=== PATIENT | male | born 1945 | race Caucasian/White ===

== ENCOUNTER 2018-07-05 08:22 | Day surgery (SDC) | payer MEDICARE, OTHER ==
[~2018-07-05 08:22] MED LIST: CHONDR SU A NA/HYALUR INTRAOC KIT (SURGICARE) ONE; EPINEPHRINE INJ/PF 1 MG/1 ML AMPULE ONE; KETOROLAC TROMETHAMINE 0.45% 4 DROP/0.4 ML DROPERETTE OS PRN; LIDOCAINE 1% INJ-PF (10 MG/ML) 30 ML SDV ONE; MIDAZOLAM 2 MG/2 ML INJ ONE
[2018-07-05] MEDS: BESIFLOXACIN HCL 0.6% OPH SUSP 5 ML BOTTLE OS PRN ×3 (09:30→10:19)
[2018-07-05] MEDS: TROPICAMIDE 1% OPH SOLN 3 ML OS PRN ×3 (09:30→09:50)
[2018-07-05] MEDS: CYCLOPENTOLATE 0.2%/PHENYLEPHRINE 1% OPH SOLN 2 ML OS PRN ×3 (09:30→09:50)
[2018-07-05] MEDS: TETRACAINE HCL 0.5% OPH SOLN 4 ML OS PRN ×3 (09:30→10:03)
--- NOTE | 2018-07-06 23:42 | [facility] OPERATIVE REPORT E ---
[facility] Operative Report NAME: GILMA FRANCIS SR AGE: 73Y DATE OF SURGERY: 07/05/2018 ROOM: PREOPERATIVE DIAGNOSIS: CATARACT, RIGHT EYE. POSTOPERATIVE DIAGNOSIS: CATARACT, RIGHT EYE. OPERATION: Cataract extraction with insertion of an IOL of the right eye. SURGEON: LARISSA PALMA M.D. ANESTHESIA: Topical. PROCEDURE: After obtaining appropriate consent, the patient's right eye was prepped and draped in sterile fashion as well as the surgeon in a sterile manner and cataract surgery was started. First a paracentesis blade was used to make a side-port incision. Viscoelastic was used to inflate the anterior chamber. Next a 2.4 mm incision was made with a 2.4 mm blade, clear corneal temporally. A continuous capsulorrhexis was made using a cystotome and Utrata forceps. Following this hydrodissection was carried out to make the lens fully loose and mobile and it was rotated 90 degrees. Following this, a nkolfb-irw-tnvuwzp technique was used to phacoemulsify the lens with a CDE of 7.04. The remaining cortex was removed with irrigation/aspiration. Provisc was instilled into the capsular bag to inflate the bag. A SN60WF, 20.5 diopter lens was placed. The remaining viscoelastic material was removed with irrigation/aspiration. Following this, the incision was found to be watertight. Besivance was instilled into the eye and a protective shield was placed over the eye. The patient returned to the postoperative recovery in stable condition. DICTATING PHYSICIAN: LARISSA PALMA M.D. [id number] PHY#: [id number] ID: [id number] JOB#: [id number] ACCT: [id number] cc:LARISSA PALMA M.D. >
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
--- NOTE | 2018-07-13 13:12 | [facility] OPERATIVE REPORT E ---
[facility] Operative Report NAME: GILMA FRANCIS SR AGE: 73Y DATE OF SURGERY: 07/05/2018 ROOM: ADDENDUM: PREOPERATIVE DIAGNOSIS: CATARACT, LEFT EYE. POSTOPERATIVE DIAGNOSIS: CATARACT, LEFT EYE. OPERATION: Cataract extraction with insertion of an IOL of the left eye. PROCEDURE: It should be changed to left eye. DICTATING PHYSICIAN: LARISSA PALMA M.D. [id number] PHY#: [id number] ID: [id number] JOB#: [id number] ACCT: [id number] cc:LARISSA PALAM M.D. >
== END 2018-07-05 11:05 | disposition home or self-care (01) ==
LOC: SC 08:22
PROVIDERS: ATTEND Internal Medicine
DX: H25.13 Age-related nuclear cataract, bilateral (principal); H35.3131 Nonexudative age-related macular degeneration, bilateral, early dry stage; E11.9 Type 2 diabetes mellitus without complications; I10 Essential (primary) hypertension; E78.00 Pure hypercholesterolemia, unspecified; Z87.891 Personal history of nicotine dependence; Z79.1 Long term (current) use of non-steroidal anti-inflammatories (NSAID); Z79.84 Long term (current) use of oral hypoglycemic drugs; Z79.899 Other long term (current) drug therapy; Z79.82 Long term (current) use of aspirin
CPT/HCPCS: 66984; 82962; V2632; J2250; J3490 ×3; J0171; 142

== ENCOUNTER 2018-07-24 07:52 | Day surgery (SDC) | payer OTHER ==
[~2018-07-24 07:52] MED LIST changes: -CHONDR SU A NA/HYALUR INTRAOC KIT (SURGICARE) ONE; -EPINEPHRINE INJ/PF 1 MG/1 ML AMPULE ONE; +KETOROLAC TROMETHAMINE 0.45% 4 DROP/0.4 ML DROPERETTE OD PRN; -KETOROLAC TROMETHAMINE 0.45% 4 DROP/0.4 ML DROPERETTE OS PRN; -LIDOCAINE 1% INJ-PF (10 MG/ML) 30 ML SDV ONE
[2018-07-24] MEDS: TROPICAMIDE 1% OPH SOLN 3 ML OD PRN ×3 (08:35→08:55)
[2018-07-24] MEDS: BESIFLOXACIN HCL 0.6% OPH SUSP 5 ML BOTTLE OD PRN ×4 (08:35→09:36)
[2018-07-24] MEDS: CYCLOPENTOLATE 0.2%/PHENYLEPHRINE 1% OPH SOLN 2 ML OD PRN ×3 (08:35→08:55)
[2018-07-24] MEDS: TETRACAINE HCL 0.5% OPH SOLN 4 ML OD PRN ×3 (08:36→09:17)
[2018-07-24] MEDS: LIDOCAINE 1% INJ-PF (10 MG/ML) 30 ML SDV ONE ×2 (09:24→09:25)
[2018-07-24] MEDS: EPINEPHRINE INJ/PF 1 MG/1 ML AMPULE ONE ×2 (09:24→09:25)
[2018-07-24] MEDS: CHONDR SU A NA/HYALUR INTRAOC KIT (SURGICARE) ONE ×2 (09:24→09:25)
[2018-07-24] MEDS ORDERED: LIDOCAINE 1%/PHENYLEPHRINE 1.5% 1 ML VIAL ONE (10:44)
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
--- NOTE | 2018-07-25 08:27 | [facility] OPERATIVE REPORT E ---
[facility] Operative Report NAME: GILMA FRANCIS SR AGE: 73Y DATE OF SURGERY: 07/24/2018 ROOM: PREOPERATIVE DIAGNOSIS: CATARACT, RIGHT EYE. POSTOPERATIVE DIAGNOSIS: CATARACT, RIGHT EYE. OPERATION: Cataract extraction with insertion of an IOL of the right eye. SURGEON: LARISSA PALMA M.D. ANESTHESIA: Topical. PROCEDURE: After obtaining appropriate consent, the patient's right eye was prepped and draped in sterile fashion as well as the surgeon in a sterile manner and cataract surgery was started. First a paracentesis blade was used to make a side-port incision. Viscoelastic was used to inflate the anterior chamber. Next a 2.4 mm incision was made with a 2.4 mm blade, clear corneal temporally. A continuous capsulorrhexis was made using a cystotome and Utrata forceps. Following this hydrodissection was carried out to make the lens fully loose and mobile and it was rotated 90 degrees. Following this, a hqhcrn-rbw-ofnaznl technique was used to phacoemulsify the lens with a CDE of 12.29. The remaining cortex was removed with irrigation/aspiration. Provisc was instilled into the capsular bag to inflate the bag. A SN60WF, 20.0 diopter lens was placed. The remaining viscoelastic material was removed with irrigation/aspiration. Following this, the incision was found to be watertight. Besivance was instilled into the eye and a protective shield was placed over the eye. The patient returned to the postoperative recovery in stable condition. DICTATING PHYSICIAN: LARISSA PALMA M.D. [id number] PHY#: [id number] ID: [id number] JOB#: [id number] ACCT: [id number] cc:LARISSA PALMA M.D. >
== END 2018-07-24 10:12 | disposition home or self-care (01) ==
LOC: SC 07:52
PROVIDERS: ATTEND Internal Medicine
DX: H25.11 Age-related nuclear cataract, right eye (principal); Z96.1 Presence of intraocular lens; J45.909 Unspecified asthma, uncomplicated; I10 Essential (primary) hypertension; Z79.899 Other long term (current) drug therapy; E11.9 Type 2 diabetes mellitus without complications; Z79.84 Long term (current) use of oral hypoglycemic drugs; Z79.82 Long term (current) use of aspirin; Z79.51 Long term (current) use of inhaled steroids
CPT/HCPCS: 66984; 82962; V2632; J2250; J3490 ×3; J0171; J2370; 142

== ENCOUNTER 2018-10-09 03:18 | Inpatient (IN) | payer OTHER, MEDICARE ==
[2018-10-09 03:38] LABS: ABSOLUTE LYMPHOCYTES (AUTO) 0.6 10^3/uL (0.5-4.7); ABSOLUTE MONOCYTES (AUTO) 0.6 10^3/uL (0.1-1.4); ABSOLUTE NEUT (AUTO) 8.4 10^3/uL (1.7-8.2); BASOPHILS % (AUTO) 0.2 % (0-2); EOSINOPHILS % (AUTO) 0.1 % (0-6); HEMATOCRIT 44.2 % (37.9-51.0); HEMOGLOBIN 15.8 g/dL (13.5-17.0); MEAN CORPUSCULAR HGB CONC 35.8 g/dL (32.0-36.0); MEAN CORPUSCULAR VOLUME 98 fl (80-97); MONOCYTES % (AUTO) 6.3 % (3-13); PLATELET COUNT 195 10^3/uL (150-450); RED BLOOD COUNT 4.51 10^6/uL (4.35-5.55); RED CELL DISTRIBUTION WIDTH 13.8 % (11.5-14.0); SEGMENTED NEUTROPHILS % (AUTO) 87.4 % (42-78); TOTAL CELLS COUNTED % (AUTO) 100 %; WHITE BLOOD COUNT 9.6 10^3/uL (4.0-10.5)
[2018-10-09 03:51] LABS: INTERNATIONAL RATION (INR) 1.01; PROTHROMBIN TIME 13.9 SEC (11.4-15.4)
[2018-10-09] MEDS ORDERED: IPRATROPIUM/ALBUTEROL 0.5-2.5 MG/3 ML AMPUL NEB ONE (04:27)
[2018-10-09 04:50] LABS: A TYPE INFLUENZA AG NEGATIVE (NEGATIVE); B INFLUENZA AG NEGATIVE (NEGATIVE)
--- NOTE | 2018-10-09 04:58 | RADIOLOGY REPORT (SQ) ---
EXAM DESCRIPTION: XR CHEST 1 VIEW COMPLETED DATE/TME: 10/09/2018 03:29 CLINICAL HISTORY: 73 years Male, fever/cough COMPARISON: None. NUMBER OF VIEWS/TECHNIQUE: 1/AP FINDINGS: Adequate lung volume, clear parenchyma, normal cardiac silhouette, and intact bony thorax. IMPRESSION: No acute cardiopulmonary findings.
[2018-10-09] MEDS ORDERED: RINGERS SOLUTION,LACTATED 1,000 ML IV ONE ×2 (05:05→06:04)
[2018-10-09 05:07] LABS: VENOUS BLOOD BASE EXCESS -4.9 mmol/L; VENOUS BLOOD HCO3 16.5 mmol/L (20-32); VENOUS BLOOD PH 7.49 (7.30-7.42)
[2018-10-09 05:26] LABS: APPEARANCE,URINE CLEAR; BILIRUBIN,URINE NEGATIVE (NEGATIVE); COLOR,URINE YELLOW; GLUCOSE, URINE NEGATIVE (NEGATIVE); KETONES,URINE 20 mg/dL (NEGATIVE); LEUKOCYTE ESTERASE,URINE NEGATIVE (NEGATIVE); NITRITE,URINE NEGATIVE (NEGATIVE); PROTEIN,URINE NEGATIVE (NEGATIVE); URINE SPECIFIC GRAVITY 1.025
[2018-10-09 05:45] LABS: ALANINE AMINOTRANSFERASE 32 U/L (21-72); ALBUMIN 4.1 g/dL (3.5-5.0); ALKALINE PHOSPHATASE 81 U/L (38-126); ANION GAP 12 (5-19); ASPARTATE AMINO TRANSFERASE 23 U/L (17-59); BILIRUBIN,DIRECT 0.7 mg/dL (0.0-0.4); BILIRUBIN,TOTAL 2.9 mg/dL (0.2-1.3); BLOOD UREA NITROGEN 19 mg/dL (7-20); CALCIUM 9.3 mg/dL (8.4-10.2); CARBON DIOXIDE 20 mmol/L (22-30); CHLORIDE 106 mmol/L (98-107); GLUCOSE 179 mg/dL (75-110); LIPASE 71.5 U/L (23-300); SODIUM 138.1 mmol/L (137-145); TOTAL PROTEIN 7.4 g/dL (6.3-8.2)
--- NOTE | 2018-10-09 06:54 | ER Document Report ---
ED Fever - General Chief Complaint: Fever Stated Complaint: FEVER Time Seen by Provider: 10/09/18 03:28 Primary Care Provider: KELVIN ALEXIS FNP [Primary Care Provider] - Follow up as needed Notes: Patient is a 73-year-old male presents the emergency department for generalized respiratory distress, cough, congestion, fever. Patient's is also sick with URI symptoms at home. States this evening patient noted to be very nauseated and breathing fast. states she took the patient's temperature and it read 103. States he did take an albuterol treatment prior to calling 911 due to COPD. Patient states she is feeling somewhat short of breath although is currently denying any nausea. Patient is denying any abdominal pain, chest pain. Past medical history: COPD, depression, diabetes Medications: Fluoxetine, propranolol, Flexeril, promethazine, metformin, meloxicam, albuterol Allergies: None TRAVEL OUTSIDE OF THE [place] IN LAST 30 DAYS: No - Related Data Allergies/Adverse Reactions: No Known Allergies Allergy (Verified 07/24/18 08:38) Past Medical History - General Information source: Patient, Relative - Social History Smoking Status: Never Smoker Chew tobacco use (# tins/day): No Frequency of alcohol use: None Drug Abuse: None Family History: Reviewed & Not Pertinent Patient has suicidal ideation: No Patient has homicidal ideation: No - Past Medical History Cardiac Medical History: Reports: Hx Hypercholesterolemia, Hx Hypertension - HAS MED TO TAKE WHEN GOING TO DR. ONLY TAKES IT WHEN GOING Denies: Hx Heart Attack Pulmonary Medical History: Reports: Hx Asthma - MILD/HAS NEB PRN Neurological Medical History: Denies: Hx Cerebrovascular Accident, Hx Seizures Renal/ Medical History: Denies: Hx Peritoneal Dialysis GI Medical History: Denies: Hx Hepatitis, Hx Hiatal Hernia, Hx Ulcer Psychiatric Medical History: Reports: Hx Depression Infectious Medical History: Denies: Hx Hepatitis Past Surgical History: Reports: Hx Orthopedic Surgery - rotator cuff. Denies: Hx Open Heart Surgery, Hx Pacemaker - Immunizations Hx Diphtheria, Pertussis, Tetanus Vaccination: Yes Review of Systems - Review of Systems Constitutional: See HPI EENT: See HPI Cardiovascular: See HPI Respiratory: See HPI Gastrointestinal: See HPI Genitourinary: No symptoms reported Male Genitourinary: No symptoms reported Musculoskeletal: No symptoms reported Skin: No symptoms reported Hematologic/Lymphatic: No symptoms reported Neurological/Psychological: No symptoms reported Physical Exam - Vital signs Vitals: Resp Pulse Ox 21 H 93 10/09/18 03:54 10/09/18 03:54 - Notes Notes: GENERAL: Alert, interacts well. Tachypnea noted, HEAD: Normocephalic, atraumatic. EYES: Pupils equal, round, and reactive to light. Extraocular movements intact. ENT: Oral mucosa moist, tongue midline. Nares patent, TM's intact, nonerythematous, nonbulging bilaterally. Pharynx within normal limits no palat al petechiae noted. NECK: Full range of motion. Supple. Trachea midline. LUNGS: Diminished to auscultation bilaterally, no discernible wheezes, rales, or rhonchi. Tachypnea HEART: Tachycardic rate and rhythm. No murmur ABDOMEN: Soft, non-tender. Non-distended. Bowel sounds present in all 4 quadrant s. EXTREMITIES: Moves all 4 extremities spontaneously. No edema, normal radial and dorsalis pedis pulses bilaterally. No cyanosis. BACK: no cervical, thoracic, lumbar midline tenderness. No saddle anesthesia, normal distal neurovascular exam. NEUROLOGICAL: Alert and oriented x3. Normal speech. cranial nerves II through XII grossly intact. PSYCH: Normal affect, normal mood. SKIN: Hot, dry, normal turgor. No rashes or lesions noted. Course - Re-evaluation Re-evalutation: 73-year-old male presents to the emergency department with fever, respiratory distress. EMS had given the patient 1 L of normal saline solution. Patient had been fluid resuscitated with 1 more liter in the emergency department. 10/09/18 06:54 2nd liter of IV solution ordered but not given. Pts vitals are much improved at this time. Patient's labs show no signs of leukocytosis, no signs of anemia, VBG shows a pH of 7.49, PCO2 22, HCO3 16.5 10/09/18 07:41 Patient curb 65-2. Upon ambulatory pulse ox patient remains with an SPO2 of 92, gets significantly tachypneic at 40 and tachycardic in the 1 teens. Discussed this case with Suzi ZEPEDA who will admit the patient for community-acquired pneumonia. Once patient is sitting in bed nonambulatory his oxygen saturation remains at 92, respiratory rate down to 20. Heart rate 95. Patient replaced on 2 L supplemental oxygen via nasal cannula. - Vital Signs Vital signs: Temp Pulse Resp BP Pulse Ox 98.1 F 22 H 118/76 93 10/09/18 07:47 10/09/18 07:48 10/09/18 07:48 10/09/18 07:48 - Laboratory Result Diagrams: 10/09/18 03:00 10/09/18 03:00 Laboratory results interpreted by me: 10/09/18 10/09/18 10/09/18 03:00 03:00 04:00 MCV 98 H MCH 35.0 H Seg Neutrophils % 87.4 H Lymphocytes % 6.0 L Absolute Neutrophils 8.4 H VBG pH VBG pCO2 VBG HCO3 Carbon Dioxide 20 L Glucose 179 H Lactic Acid 2.7 H Total Bilirubin 2.9 H Direct Bilirubin 0.7 H Urine Ketones Urine Urobilinogen 10/09/18 10/09/18 10/09/18 04:45 04:45 06:39 MCV MCH Seg Neutrophils % Lymphocytes % Absolute Neutrophils VBG pH 7.49 H VBG pCO2 22.0 L 32.2 L VBG HCO3 16.5 L 19.6 L Carbon Dioxide Glucose Lactic Acid Total Bilirubin Direct Bilirubin Urine Ketones 20 H Urine Urobilinogen 2.0 H Discharge - Discharge Clinical Impression: Pneumonia Qualifiers: Pneumonia type: due to unspecified organism Laterality: left Lung location: lower lobe of lung Qualified Code(s): J18.1 - Lobar pneumonia, unspecified organism Condition: Stable Disposition: ADMITTED INPATIENT Admitting Provider: Steve Workman PA-C Unit Admitted: Telemetry Referrals: KELVIN ALEXIS FNP [Primary Care Provider] - Follow up as needed
[2018-10-09 06:58] LABS: VENOUS BLOOD BASE EXCESS -4.1 mmol/L; VENOUS BLOOD HCO3 19.6 mmol/L (20-32); VENOUS BLOOD PCO2 32.2 mmHg (35-63); VENOUS BLOOD PH 7.4 (7.30-7.42)
--- NOTE | 2018-10-09 07:15 | RADIOLOGY REPORT (SQ) ---
EXAM DESCRIPTION: CT ABDOMEN PELVIS WITH IV CONTRAST COMPLETED DATE/TME: 10/09/2018 04:27 CLINICAL HISTORY: 73 years Male, pain general/vomiting Comparison: None. Technique: IV contrast. Coronal and sagittal reformat. This exam was performed according to our departmental dose-optimization program, which includes automated exposure control, adjustment of the mA and/or kV according to patient size and/or use of iterative reconstruction technique. [facility]: Dose Right [facility]: CareDose [facility]: Dose Right [facility]: Teradose 4D [facility]: XGear LIMITATIONS: None Findings: Moderate consolidate of the left lower lobe, partially imaged, indicative of left lower lobar pneumonia. Recommend CR/CT surveillance including at 7-12 weeks following initiation of any clinically warranted therapy. Coronary arterial calcification. Atherosclerotic vascular disease. Hepatic steatosis. Small bilateral inguinal fat only hernia. Bilateral perinephric fat stranding, nonspecific. Likely benign cyst(s), not definitively characterized. Normal appendix. No gross evidence of gallbladder inflammation or hepatobiliary obstruction. No ascites. Upper abdominal clips. Moderate vacuum disc desiccation at L2-L3. Degenerative disc disease. Inferior thorax, liver, gallbladder, pancreas, spleen, adrenals, renal system, gastrointestinal tract, pelvic organs, lymphatics, vasculature, and musculoskeleton appear otherwise unremarkable. IMPRESSION: 1. Moderate left lower lobar pneumonia. Recommend CR/CT surveillance including at 7-12 weeks following initiation of any clinically warranted therapy. 2. No acute abdominal pelvic findings.
[2018-10-09] MEDS ORDERED: DOXYCYCLINE HYCLATE INJ 100 MG VIAL IV ONE (07:34)
[2018-10-09] MEDS ORDERED: CEFTRIAXONE 1 GM/D5W RTU 1 GM/50 ML RTUPB IV ONE (07:34)
--- NOTE | 2018-10-09 09:48 | EKG REPORT ---
SEVERITY:- OTHERWISE NORMAL ECG - SINUS TACHYCARDIA : Confirmed by: Yecenia Easley MD 09-Oct-2018 09:47:53
[2018-10-09] MEDS: GUAIFENESIN 600 MG TABLET.SA PO SCH ×2 (11:07→22:44)
[2018-10-09] MEDS ORDERED: HYDROCODONE BIT/HOMATROPINE SYRUP 5 ML UDCUP PO PRN (11:11)
[2018-10-09] MEDS ORDERED: ACETAMINOPHEN 325 MG TABLET PO PRN (11:16)
[2018-10-09] MEDS ORDERED: TEMAZEPAM 7.5 MG CAPSULE PO PRN (11:16)
[2018-10-09] MEDS ORDERED: IPRATROPIUM/ALBUTEROL 0.5-2.5 MG/3 ML AMPUL NEB PRN (11:16)
[2018-10-09] MEDS ORDERED: DEXTROSE 50%-WATER 25 GM/50 ML DISP.SYRIN IV PRN ×2 (11:37)
[2018-10-09] MEDS ORDERED: GLUCAGON,HUMAN RECOMB 1 MG INJ IM PRN (11:37)
[2018-10-09] MEDS ORDERED: DEXTROSE 40% GEL 15 GM TUBE PO PRN ×2 (11:37)
--- NOTE | 2018-10-09 11:40 | PDOC H&P ---
History of Present Illness Admission Date/PCP: 10/09/18 08:20 PITO LUO Patient complains of: Fever and cough History of Present Illness: GILMA FRANCIS SR is a 73 year old male who presented to the emergency room with worsening cough and congestion and a fever of 103 at home. Past Medical History Cardiac Medical History: Reports: Hyperlipidema, Hypertension - HAS MED TO TAKE WHEN GOING TO DR. ONLY TAKES IT WHEN GOING Denies: Myocardial Infarction Pulmonary Medical History: Reports: Asthma - MILD/HAS NEB PRN EENT Medical History: Reports: Cataracts Neurological Medical History: Denies: Seizures Endocrine Medical History: Reports: Diabetes Mellitus Type 2 Malignancy Medical History: Reports: None GI Medical History: Denies: Hepatitis, Hiatal Hernia Musculoskeltal Medical History: Reports: None Skin Medical History: Reports: None Psychiatric Medical History: Reports: Depression Traumatic Medical History: Reports: None Hematology: Denies: Anemia, Sickle Cell Disease Infectious Medical History: Reports: None Past Surgical History Past Surgical History: Reports: Gastric Bypass Surgery, Orthopedic Surgery - rotator cuff, Other - Recent cataract surgery Denies: Pacemaker Social History Information Source: Patient Lives with: Spouse/Significant other Smoking Status: Former Smoker - He started smoking when he was 16 and quit in 1986. Frequency of Alcohol Use: None Hx Recreational Drug Use: No - Advance Directive Resuscitation Status: Full Code Surrogate healthcare decision maker:: Patient surrogate decision-maker is his Alem Figueroa [phone] Family History Family History: Malignancy - Father of lung cancer and mother of pancreatic cancer Parental Family History Reviewed: Yes Children Family History Reviewed: Yes Sibling(s) Family History Reviewed.: Yes Medication/Allergy Allergies/Adverse Reactions: No Known Allergies Allergy (Verified 07/24/18 08:38) Review of Systems Constitutional: PRESENT: chills, fatigue, fever(s), headache(s) Eyes: ABSENT: visual disturbances Ears: ABSENT: hearing changes Nose, Mouth, and Throat: PRESENT: headache(s), sore throat, other - Sinus congestion Cardiovascular: ABSENT: chest pain, dyspnea on exertion, edema, orthropnea, palpitations Respiratory: PRESENT: cough, dyspnea, sputum - He is coughing up yellow sputum Gastrointestinal: ABSENT: abdominal pain, constipation, diarrhea, hematemesis, hematochezia, nausea, vomiting Genitourinary: ABSENT: dysuria, hematuria Musculoskeletal: ABSENT: joint swelling Integumentary: ABSENT: rash, wounds Neurological: ABSENT: abnormal gait, abnormal speech, confusion, dizziness, f ocal weakness, syncope Psychiatric: ABSENT: anxiety, depression, homidical ideation, suicidal ideation Endocrine: ABSENT: cold intolerance, heat intolerance, polydipsia, polyuria Hematologic/Lymphatic: ABSENT: easy bleeding, easy bruising Physical Exam Vital Signs: Temp Pulse Resp BP Pulse Ox 98.1 F 22 H 118/76 93 10/09/18 07:47 10/09/18 07:48 10/09/18 07:48 10/09/18 07:48 Intake & Output 10/08/18 10/09/18 10/10/18 06:59 06:59 06:59 Intake Total 1250 800 Balance 1250 800 Weight 99.79 kg General appearance: PRESENT: no acute distress, obese, well-developed, well- nourished Head exam: PRESENT: atraumatic, normocephalic Eye exam: PRESENT: conjunctiva pink, EOMI, PERRLA. ABSENT: scleral icterus Ear exam: PRESENT: normal external ear exam Mouth exam: PRESENT: moist, tongue midline Neck exam: ABSENT: carotid bruit, JVD, lymphadenopathy, thyromegaly Respiratory exam: PRESENT: other - Coarse breath sounds noted anteriorly. ABSENT: rales, rhonchi, wheezes Cardiovascular exam: PRESENT: tachycardia. ABSENT: diastolic murmur, rubs, systolic murmur Pulses: PRESENT: normal dorsalis pedis pul GI/Abdominal exam: PRESENT: normal bowel sounds, soft. ABSENT: distended, guarding, mass, organolmegaly, rebound, tenderness Rectal exam: PRESENT: deferred Extremities exam: PRESENT: full ROM. ABSENT: calf tenderness, clubbing, pedal edema Musculoskeletal exam: PRESENT: ambulatory Neurological exam: PRESENT: alert, awake, oriented to person, oriented to place, oriented to time, oriented to situation, CN II-XII grossly intact. ABSENT: motor sensory deficit Psychiatric exam: PRESENT: appropriate affect, normal mood. ABSENT: homicidal ideation, suicidal ideation Skin exam: PRESENT: dry, intact, warm. ABSENT: cyanosis, rash Results Laboratory Results: 10/09/18 03:00 10/09/18 03:00 10/09/18 10/09/18 10/09/18 03:00 03:00 04:00 WBC 9.6 RBC 4.51 Hgb 15.8 Hct 44.2 MCV 98 H MCH 35.0 H MCHC 35.8 RDW 13.8 Plt Count 195 Seg Neutrophils % 87.4 H Lymphocytes % 6.0 L Monocytes % 6.3 Eosinophils % 0.1 Basophils % 0.2 Absolute Neutrophils 8.4 H Absolute Lymphocytes 0.6 Absolute Monocytes 0.6 Absolute Eosinophils 0.0 Absolute Basophils 0.0 VBG pH VBG pCO2 VBG HCO3 VBG Base Excess Sodium 138.1 Potassium 4.0 Chloride 106 Carbon Dioxide 20 L Anion Gap 12 BUN 19 Creatinine 0.92 Est GFR ( Amer) > 60 Est GFR (Non-Af Amer) > 60 Glucose 179 H Lactic Acid 2.7 H Calcium 9.3 Total Bilirubin 2.9 H AST 23 ALT 32 Alkaline Phosphatase 81 Total Protein 7.4 Albumin 4.1 Lipase 71.5 Urine Color Urine Appearance Urine pH Ur Specific [place] Urine Protein Urine Glucose (UA) Urine Ketones Urine Blood Urine Nitrite Ur Leukocyte Esterase Urine WBC (Auto) Urine RBC (Auto) 10/09/18 10/09/18 10/09/18 04:30 04:45 04:45 WBC RBC Hgb Hct MCV MCH MCHC RDW Plt Count Seg Neutrophils % Lymphocytes % Monocytes % Eosinophils % Basophils % Absolute Neutrophils Absolute Lymphocytes Absolute Monocytes Absolute Eosinophils Absolute Basophils VBG pH Cancelled 7.49 H VBG pCO2 Cancelled 22.0 L VBG HCO3 Cancelled 16.5 L VBG Base Excess Cancelled -4.9 Sodium Potassium Chloride Carbon Dioxide Anion Gap BUN Creatinine Est GFR ( Amer) Est GFR (Non-Af Amer) Glucose Lactic Acid Calcium Total Bilirubin AST ALT Alkaline Phosphatase Total Protein Albumin Lipase Urine Color YELLOW Urine Appearance CLEAR Urine pH 5.0 Ur Specific [place] 1.025 Urine Protein NEGATIVE Urine Glucose (UA) NEGATIVE Urine Ketones 20 H Urine Blood NEGATIVE Urine Nitrite NEGATIVE Ur Leukocyte Esterase NEGATIVE Urine WBC (Auto) 1 Urine RBC (Auto) 1 10/09/18 10/09/18 06:39 07:44 WBC RBC Hgb Hct MCV MCH MCHC RDW Plt Count Seg Neutrophils % Lymphocytes % Monocytes % Eosinophils % Basophils % Absolute Neutrophils Absolute Lymphocytes Absolute Monocytes Absolute Eosinophils Absolute Basophils VBG pH 7.40 VBG pCO2 32.2 L VBG HCO3 19.6 L VBG Base Excess -4.1 Sodium Potassium Chloride Carbon Dioxide Anion Gap BUN Creatinine Est GFR ( Amer) Est GFR (Non-Af Amer) Glucose Lactic Acid 2.6 H Calcium Total Bilirubin AST ALT Alkaline Phosphatase Total Protein Albumin Lipase Urine Color Urine Appearance Urine pH Ur Specific [place] Urine Protein Urine Glucose (UA) Urine Ketones Urine Blood Urine Nitrite Ur Leukocyte Esterase Urine WBC (Auto) Urine RBC (Auto) Impressions: Chest X-Ray 10/09/18 03:29 IMPRESSION: No acute cardiopulmonary findings. Abdomen/Pelvis CT 10/09/18 04:27 IMPRESSION: 1. Moderate left lower lobar pneumonia. Recommend CR/CT surveillance including at 7-12 weeks following initiation of any clinically warranted therapy. 2. No acute abdominal pelvic findings. Assessment and Plan - Diagnosis (1) Pneumonia Qualifiers: Pneumonia type: due to unspecified organism Laterality: left Lung locati on: lower lobe of lung Qualified Code(s): J18.1 - Lobar pneumonia, unspecified organism Is this a current diagnosis for this admission?: Yes Plan: The patient had a CT scan of the abdomen and pelvis which revealed an underlying left lower lobe pneumonia. The patient received doxycycline in the emergency room. This is likely a gram-positive for possible atypical pneumonia. I am going to start the patient on IV Levaquin, aggressive breathing treatments and IV steroids. I will get the patient a flutter valve. He states he is coughing up yellow sputum and we will obtain a sputum culture hopefully to direct therapy. Also will get a CT scan of the chest with IV contrast to further evaluate the severity of his pneumonia. (2) Diabetes Is this a current diagnosis for this admission?: Yes Plan: Type 2 diabetes mellitus. For now we will cover the patient with sliding scale insulin. (3) Hyperlipidemia Is this a current diagnosis for this admission?: Yes Plan: Continue home regimen when the medicines get into the chart to reconcile. (4) Depression Is this a current diagnosis for this admission?: Yes (5) Elevated liver function tests Is this a current diagnosis for this admission?: Yes Plan: He had a CT scan of the abdomen and pelvis which did not reveal any acute abnormalities in the liver. This could be due to his acute illness. I will repeat a liver function panel test in the morning. (6) Obesity (BMI 30.0-34.9) Is this a current diagnosis for this admission?: Yes Plan: Dietary discretion is advised (7) Status post cataract surgery Is this a current diagnosis for this admission?: Yes Plan: We will see if the patient is getting any eyedrops from his surgery. I have asked the nursing staff to notify me when his medications get into the computer. (8) Full code status Is this a current diagnosis for this admission?: Yes - Time Time Spent with patient: 35 or more minutes - Inpatient Certification Medical Necessity: Other - The patient will be admitted to the hospital. He has a community-acquired pneumonia and currently is not hypoxic. It is possible that his hospitalization will span less than 2 midnights if he has a good response to therapy. For now he will be placed in observation in the hospital and I am hopeful that his hospitalization will span less than 2 midnights.
[2018-10-09] MEDS: METHYLPREDNISOLONE INJ 40 MG/1 ML SDV IV SCH ×3 (12:19→17:15)
--- NOTE | 2018-10-09 12:23 | RADIOLOGY REPORT (SQ) ---
EXAM DESCRIPTION: CT CHEST WITHOUT COMPLETED DATE/TIME: 10/09/2018 12:17 pm REASON FOR STUDY: pneumonia-possible COMPARISON: Chest x-ray dated 10/09/2018, CT abdomen pelvis dated 10/09/2018 TECHNIQUE: CT scan performed of the chest without intravenous contrast. Images reviewed with lung, soft tissue and bone windows. Reconstructed coronal and sagittal MPR images reviewed. All images st ored on PACS. All CT scanners at this facility use dose modulation, iterative reconstruction, and/or weight based d osing when appropriate to reduce radiation dose to as low as reasonably achievable (ALARA). [facility]: Dose Right [facility]: CareDose [facility]: Dose Right [facility]: Teradose 4D [facility]: BizAnytime RADIATION DOSE: CT Rad equipment meets quality standard of care and radiation dose reduction techniq ues were employed. CTDIvol: 13.7 mGy. DLP: 570 mGy-cm. mGy. LIMITATIONS: No technical limitations. FINDINGS: LUNGS AND PLEURA: There is dense left lower lobe airspace disease consistent with pneumoni a. Mild pleural thickening. HILAR AND MEDIASTINAL STRUCTURES: No identified masses or abnormal nodes. No obvious aneurysm. HEART AND VASCULAR STRUCTURES: No aneurysm. No pericardial effusion. UPPER ABDOMEN: There is fatty infiltration of the liver. THYROID AND OTHER SOFT TISSUES: No masses. No adenopathy. BONES: No significant finding. HARDWARE: None in the chest. OTHER: No other significant findings. IMPRESSION: Left lower lobe airspace disease consistent with pneumonia. Lung alarcon are otherwise c lear. TECHNICAL DOCUMENTATION: JOB ID: [id number] Quality ID # [id number]: Final reports with documentation of one or more dose reduction techniques (e.g., Au tomated exposure control, adjustment of the mA and/or kV according to patient size, use of iterative reconstruction technique) 2010 [employer]- All Rights Reserved Reading location - IP/workstation name: [email or web address]
[2018-10-09] MEDS: LEVOFLOXACIN 750 MG/D5W RTU 750 MG/150 ML RTUPB IV SCH (13:00)
[2018-10-09] MEDS: NORMAL SALINE 1000 ML 1,000 ML IV PRN (14:36)
[2018-10-09] MEDS: IPRATROPIUM/ALBUTEROL 0.5-2.5 MG/3 ML AMPUL NEB SCH ×2 (14:40→19:48)
[2018-10-09] MEDS: INSULIN LISPRO 100 UNIT/ML 3 ML VIAL SUBCUT SCH ×2 (16:23→22:44)
[2018-10-10 05:43] LABS: ABSOLUTE LYMPHOCYTES (AUTO) 0.6 10^3/uL (0.5-4.7); ABSOLUTE MONOCYTES (AUTO) 0.5 10^3/uL (0.1-1.4); ABSOLUTE NEUT (AUTO) 8.5 10^3/uL (1.7-8.2); BASOPHILS % (AUTO) 0.1 % (0-2); HEMATOCRIT 40.3 % (37.9-51.0); HEMOGLOBIN 14.3 g/dL (13.5-17.0); LYMPHOCYTES % (AUTO) 6.5 % (13-45); MEAN CORPUSCULAR HGB CONC 35.4 g/dL (32.0-36.0); MEAN CORPUSCULAR VOLUME 99 fl (80-97); PLATELET COUNT 158 10^3/uL (150-450); RED BLOOD COUNT 4.07 10^6/uL (4.35-5.55); RED CELL DISTRIBUTION WIDTH 13.1 % (11.5-14.0); SEGMENTED NEUTROPHILS % (AUTO) 88.4 % (42-78); TOTAL CELLS COUNTED % (AUTO) 100 %; WHITE BLOOD COUNT 9.7 10^3/uL (4.0-10.5)
[2018-10-10] MEDS: PANTOPRAZOLE SODIUM 40 MG TABLET.DR PO SCH (06:01)
[2018-10-10] MEDS: METHYLPREDNISOLONE INJ 40 MG/1 ML SDV IV SCH ×3 (06:01→22:35)
[2018-10-10] MEDS: NORMAL SALINE 1000 ML 1,000 ML IV PRN (06:04)
[2018-10-10 06:07] LABS: ALANINE AMINOTRANSFERASE 26 U/L (21-72); ALBUMIN 3.4 g/dL (3.5-5.0); ALKALINE PHOSPHATASE 64 U/L (38-126); ASPARTATE AMINO TRANSFERASE 20 U/L (17-59); BILIRUBIN,DIRECT 0.7 mg/dL (0.0-0.4); BILIRUBIN,TOTAL 2.8 mg/dL (0.2-1.3); TOTAL PROTEIN 6.2 g/dL (6.3-8.2)
[2018-10-10] MEDS: INSULIN LISPRO 100 UNIT/ML 3 ML VIAL SUBCUT SCH ×4 (08:15→22:35)
[2018-10-10] MEDS: IPRATROPIUM/ALBUTEROL 0.5-2.5 MG/3 ML AMPUL NEB SCH ×3 (08:39→20:00)
[2018-10-10] MEDS: GUAIFENESIN 600 MG TABLET.SA PO SCH ×2 (09:34→22:35)
[2018-10-10] MEDS: LEVOFLOXACIN 750 MG/D5W RTU 750 MG/150 ML RTUPB IV SCH (09:35)
[2018-10-10] MEDS: ENOXAPARIN SODIUM INJ 40 MG/0.4 ML DISP.SYRIN SUBCUT SCH (09:35)
[2018-10-10] MEDS ORDERED: DOCUSATE SODIUM 100 MG/10 ML UDC PO SCH (10:00)
--- NOTE | 2018-10-10 10:49 | PDOC PROGRESS REPORT ---
Subjective Progress Note for:: 10/10/18 Subjective:: The patient is a 73-year-old male who presented to the emergency room with worsening cough and congestion. He had a fever as high as 103 at home. His past medical history is significant for hyperlipidemia and hypertension as well as mild asthma. He also has diabetes mellitus. In any event the patient presented to the emergency room. He was found to he had a CT scan performed which revealed a dense left lower lobe pneumonia. He was admitted to the hospital and started on IV Levaquin, IV Solu-Medrol and aggressive breathing treatments. This morning the patient is resting in the bed. He is not really been hypoxic but feels much better with oxygen on. He still sounds quite congestion he still complains of sinus congestion and a headache. His cough is improving somewhat. He still is short of breath if he gets up and moves around. He has had no nausea, vomiting or diarrhea. No urinary complaints. Reason For Visit: PNEUMONIA Physical Exam Vital Signs: Temp Pulse Resp BP Pulse Ox 97.5 F 92 16 148/80 H 92 10/10/18 08:25 10/10/18 08:39 10/10/18 08:39 10/10/18 08:25 10/10/18 08:39 Intake & Output 10/09/18 10/10/18 10/11/18 06:59 06:59 06:59 Intake Total 1250 2456 Output Total 1750 Balance 1250 706 Weight 99.79 kg 95.4 kg General appearance: PRESENT: no acute distress, well-developed, well-nourished Head exam: PRESENT: atraumatic, normocephalic Neck exam: ABSENT: carotid bruit, JVD, lymphadenopathy, thyromegaly Respiratory exam: PRESENT: decreased breath sounds - His lungs sound fairly jone r. Mild rales in the left lower base. ABSENT: rales, rhonchi, wheezes Cardiovascular exam: PRESENT: RRR. ABSENT: diastolic murmur, rubs, systolic murmur GI/Abdominal exam: PRESENT: normal bowel sounds, soft. ABSENT: distended, guarding, mass, organolmegaly, rebound, tenderness Rectal exam: PRESENT: deferred Extremities exam: PRESENT: full ROM. ABSENT: calf tenderness, clubbing, pedal edema Neurological exam: PRESENT: alert, awake, oriented to person, oriented to place, oriented to time, oriented to situation, CN II-XII grossly intact. ABSENT: motor sensory deficit Psychiatric exam: PRESENT: appropriate affect, normal mood. ABSENT: homicidal ideation, suicidal ideation Skin exam: PRESENT: dry, intact, warm. ABSENT: cyanosis, rash Results Laboratory Results: 10/10/18 04:00 10/09/18 03:00 10/10/18 10/10/18 04:00 04:00 WBC 9.7 RBC 4.07 L Hgb 14.3 Hct 40.3 MCV 99 H MCH 35.0 H MCHC 35.4 RDW 13.1 Plt Count 158 Seg Neutrophils % 88.4 H Lymphocytes % 6.5 L Monocytes % 5.0 Eosinophils % 0.0 Basophils % 0.1 Absolute Neutrophils 8.5 H Absolute Lymphocytes 0.6 Absolute Monocytes 0.5 Absolute Eosinophils 0.0 Absolute Basophils 0.0 Magnesium 2.1 Total Bilirubin 2.8 H AST 20 ALT 26 Alkaline Phosphatase 64 Total Protein 6.2 L Albumin 3.4 L 10/10/18 04:00 NT-Pro-B Natriuret Pep 370 Impressions: Chest CT 10/09/18 00:00 IMPRESSION: Left lower lobe airspace disease consistent with pneumonia. Lung alarcon are otherwise clear. Chest X-Ray 10/09/18 03:29 IMPRESSION: No acute cardiopulmonary findings. Abdomen/Pelvis CT 10/09/18 04:27 IMPRESSION: 1. Moderate left lower lobar pneumonia. Recommend CR/CT surveillance including at 7-12 weeks following initiation of any clinically warranted therapy. 2. No acute abdominal pelvic findings. Assessment and Plan - Diagnosis (1) Pneumonia Qualifiers: Pneumonia type: due to unspecified organism Laterality: left Lung location: lower lobe of lung Qualified Code(s): J18.1 - Lobar pneumonia, unspecified organism Is this a current diagnosis for this admission?: Yes Plan: The patient had a CT scan of the abdomen and pelvis which revealed an underlying left lower lobe pneumonia. The patient received doxycycline in the emergency room. This is likely a gram-positive for possible atypical pneumonia. He will continue IV Levaquin, aggressive breathing treatments and IV steroids. This is day #2 of treatment with IV Levaquin. (2) Diabetes Is this a current diagnosis for this admission?: Yes Plan: I am going to start the patient on his home dose of metformin. He has sliding scale available as well as he is receiving steroids. (3) Hyperlipidemia Is this a current diagnosis for this admission?: Yes Plan: Continue home regimen (4) Depression Is this a current diagnosis for this admission?: Yes Plan: Stable (5) Elevated liver function tests Is this a current diagnosis for this admission?: Yes Plan: CT scan of the abdomen and pelvis performed in the emergency room revealed evidence of a fatty liver. There was some mild nonspecific perinephric stranding noted. He does not have any abdominal pain. I will check a liver function test in the morning. This may all be due to his acute illness (6) Obesity (BMI 30.0-34.9) Is this a current diagnosis for this admission?: Yes Plan: Dietary discretion is advised (7) Status post cataract surgery Is this a current diagnosis for this admission?: Yes Plan: We will try to get the patient back on his eyedrops. He can use his home medications if needed (8) Full code status Is this a current diagnosis for this admission?: Yes - Time Time Spent with patient: 35 or more minutes - Inpatient Certification Medical Necessity: Other - Inpatient hospitalization remains necessary should still is not feeling well and is borderline hypoxic. He is requiring parenteral therapies here in the hospital. Timing of disposition will be determined by his clinical course
[2018-10-10] MEDS ORDERED: SALMETEROL IH SCH (11:00)
[2018-10-10] MEDS ORDERED: IPRATROPIUM/ALBUTEROL 0.5-2.5 MG/3 ML AMPUL NEB SCH (11:00)
[2018-10-10] MEDS ORDERED: [UNRECOGNIZED DRUG - OTHER] IH SCH (11:00)
[2018-10-10] MEDS ORDERED: FLUTICASONE PROPION IH SCH (11:00)
[2018-10-10] MEDS: PROPRANOLOL HCL 20 MG TABLET PO SCH (11:21)
[2018-10-10] MEDS: FLUOXETINE HCL 20 MG CAPSULE PO SCH (11:22)
[2018-10-10] MEDS: MELOXICAM 15 MG TABLET PO SCH (11:22)
[2018-10-10] MEDS: METFORMIN HCL 500 MG TABLET PO SCH (11:22)
[2018-10-10] MEDS: CARBOXYMETHYLCELLULOSE SOD 0.5% 0.4 ML DROPERETTE OU SCH (14:44)
[2018-10-10] MEDS ORDERED: SIMVASTATIN 40 MG TABLET PO SCH (22:00)
[2018-10-10] MEDS ORDERED: (PENDING PHARMACY ID) (Prazosin Hcl [Minipress] 1 MG) PO SCH (22:00)
[2018-10-11 05:47] LABS: ABSOLUTE LYMPHOCYTES (AUTO) 0.7 10^3/uL (0.5-4.7); ABSOLUTE MONOCYTES (AUTO) 0.6 10^3/uL (0.1-1.4); ABSOLUTE NEUT (AUTO) 11.7 10^3/uL (1.7-8.2); HEMATOCRIT 40.2 % (37.9-51.0); HEMOGLOBIN 13.9 g/dL (13.5-17.0); LYMPHOCYTES % (AUTO) 5.1 % (13-45); MEAN CORPUSCULAR HEMOGLOBIN 34.3 pg (27.0-33.4); MEAN CORPUSCULAR HGB CONC 34.6 g/dL (32.0-36.0); MEAN CORPUSCULAR VOLUME 99 fl (80-97); MONOCYTES % (AUTO) 4.4 % (3-13); PLATELET COUNT 194 10^3/uL (150-450); RED BLOOD COUNT 4.04 10^6/uL (4.35-5.55); RED CELL DISTRIBUTION WIDTH 13.6 % (11.5-14.0); SEGMENTED NEUTROPHILS % (AUTO) 90.5 % (42-78); TOTAL CELLS COUNTED % (AUTO) 100 %; WHITE BLOOD COUNT 12.9 10^3/uL (4.0-10.5)
[2018-10-11] MEDS: PANTOPRAZOLE SODIUM 40 MG TABLET.DR PO SCH (05:50)
[2018-10-11] MEDS: METHYLPREDNISOLONE INJ 40 MG/1 ML SDV IV SCH (05:50)
[2018-10-11 06:13] LABS: ALBUMIN 3.4 g/dL (3.5-5.0); ANION GAP 12 (5-19); BLOOD UREA NITROGEN 25 mg/dL (7-20); CALCIUM 9.2 mg/dL (8.4-10.2); CARBON DIOXIDE 20 mmol/L (22-30); CHLORIDE 107 mmol/L (98-107); GLUCOSE 190 mg/dL (75-110); PHOSPHORUS 3.3 mg/dL (2.5-4.5); POTASSIUM 4.3 mmol/L (3.6-5.0); SODIUM 138.9 mmol/L (137-145)
[2018-10-11] MEDS: INSULIN LISPRO 100 UNIT/ML 3 ML VIAL SUBCUT SCH ×2 (08:01→11:45)
[2018-10-11] MEDS: IPRATROPIUM/ALBUTEROL 0.5-2.5 MG/3 ML AMPUL NEB SCH (08:18)
[2018-10-11] MEDS: ENOXAPARIN SODIUM INJ 40 MG/0.4 ML DISP.SYRIN SUBCUT SCH (09:41)
[2018-10-11] MEDS: CARBOXYMETHYLCELLULOSE SOD 0.5% 0.4 ML DROPERETTE OU SCH (09:41)
[2018-10-11] MEDS: PROPRANOLOL HCL 20 MG TABLET PO SCH (09:43)
[2018-10-11] MEDS: METFORMIN HCL 500 MG TABLET PO SCH (09:43)
[2018-10-11] MEDS: LEVOFLOXACIN 750 MG/D5W RTU 750 MG/150 ML RTUPB IV SCH (09:43)
[2018-10-11] MEDS: FLUOXETINE HCL 20 MG CAPSULE PO SCH (09:43)
[2018-10-11] MEDS: MELOXICAM 15 MG TABLET PO SCH (09:43)
[2018-10-11] MEDS: GUAIFENESIN 600 MG TABLET.SA PO SCH (09:44)
[2018-10-11] MEDS ORDERED: HYDROCODONE BIT/HOMATROPINE 5-1.5 MG TABLET PO PRN (09:52)
[2018-10-11] MEDS ORDERED: FLUTICASONE/VILANTEROL 100-25 MCG/DOSE IH SCH (10:00)
[2018-10-11] MEDS ORDERED: DOCUSATE SODIUM 100 MG CAPSULE PO SCH (10:00)
[2018-10-11 10:44] VITALS: BP 130/72
--- NOTE | 2018-10-11 14:25 | PDOC DISCHARGE SUMMARY ---
General - Admit/Disc Date/PCP Admission Date/Primary Care Provider: 10/09/18 17:12 PITO LUO Discharge Date: 10/11/18 - Discharge Diagnosis (3) Depression Is this a current diagnosis for this admission?: Yes (4) Diabetes Is this a current diagnosis for this admission?: Yes (5) Full code status Is this a current diagnosis for this admission?: Yes (6) Hyperlipidemia Is this a current diagnosis for this admission?: Yes (7) Pneumonia Is this a current diagnosis for this admission?: Yes - Additional Information Resuscitation Status: Full Code Discharge Diet: As Tolerated Discharge Activity: Activity As Tolerated, Balance Activity w/Rest Prescriptions: Montelukast Sodium [Singulair 10 mg Tablet] 10 mg PO QHS #30 tablet Hydrocodone Bit/Homatropine [Hycodan 5-1.5 mg Tablet] 1 tab PO Q4HP PRN #18 tablet PRN Reason: Levofloxacin [Levaquin 750 mg Tablet] 750 mg PO DAILY #4 tablet Methylprednisolone [Medrol Dosepack (4 mg/Tab) 21 Tab/Dosepak] 4 mg PO ASDIR PRN #21 tab.ds.pk PRN Reason: Home Medications: Carboxymethylcellulose Sodium [Refresh Plus 0.5% Oph Soln 0.4 ml Droperette] 1 drop OU DAILY 10/09/18 Ergocalciferol (Vitamin D2) [Drisdol 50,000 unit (1.25MG) Capsule] 50,000 unit PO CAZARES@1000 10/09/18 Fluoxetine HCl [Prozac 20 mg Capsule] 60 mg PO DAILY 10/09/18 Fluticasone Propion/Salmeterol [Fluticasone-Salmeterol 100-50] 1 puff IH Q12 10/09/18 Ipratropium/Albuterol Sulfate [Duoneb 3 ml Ampul] 1 vial NEB QID 10/09/18 Meloxicam [Mobic] 15 mg PO DAILY 10/09/18 Metformin HCl [Glucophage 500 mg Tablet] 500 mg PO DAILY 10/09/18 Prazosin HCl [Minipress] 1 mg PO QHS 10/09/18 Propranolol HCl [Inderal 20 mg Tablet] 20 mg PO DAILY 10/09/18 Sildenafil Citrate [Viagra] 100 mg PO PRN PRN 10/09/18 Simvastatin [Zocor 80 mg Tablet] 40 mg PO Q2DAYS 10/09/18 Terbinafine HCl [Antifungal] 1 applic TOP DAILY 10/09/18 Urea [Carmol 20% Cream 85 gm] 1 applic TOP BID 10/09/18 Acetaminophen [Tylenol 325 mg Tablet] 650 mg PO Q4HP PRN tablet 10/11/18 Glucagon,Human Recombinant [Glucagen Inj 1 mg Vial] 1 mg IM PRN PRN vial 10/11/18 Hydrocodone Bit/Homatropine [Hycodan 5-1.5 mg Tablet] 1 tab PO Q4HP PRN #18 tablet 10/11/18 Levofloxacin [Levaquin 750 mg Tablet] 750 mg PO DAILY #4 tablet 10/11/18 Methylprednisolone [Medrol Dosepack (4 mg/Tab) 21 Tab/Dosepak] 4 mg PO ASDIR PRN #21 tab.ds.pk 10/11/18 Montelukast Sodium [Singulair 10 mg Tablet] 10 mg PO QHS #30 tablet 10/11/18 History of Present Illness Patient complains of: Cough, shortness of breath and wheezing History of Present Illness: GILMA FRANCIS SR is a 73 year old male Physical Exam Vital Signs: Temp Pulse Resp BP Pulse Ox 98.8 F 84 18 130/72 H 91 L 10/11/18 10:42 10/11/18 10:42 10/11/18 10:42 10/11/18 10:42 10/11/18 10:42 Intake & Output 10/10/18 10/11/18 10/12/18 06:59 06:59 06:59 Intake Total 2456 2503 Output Total 1750 606 Balance 706 1897 Weight 95.4 kg 98.9 kg General appearance: PRESENT: no acute distress, well-developed, well-nourished Head exam: PRESENT: atraumatic, normocephalic Eye exam: PRESENT: conjunctiva pink, EOMI, PERRLA. ABSENT: scleral icterus Ear exam: PRESENT: normal external ear exam Mouth exam: PRESENT: moist, tongue midline Neck exam: ABSENT: carotid bruit, JVD, lymphadenopathy, thyromegaly Respiratory exam: PRESENT: symmetrical, unlabored. ABSENT: rales, rhonchi, wheezes Cardiovascular exam: PRESENT: RRR. ABSENT: diastolic murmur, rubs, systolic murmur Pulses: PRESENT: normal dorsalis pedis pul Vascular exam: PRESENT: normal capillary refill GI/Abdominal exam: PRESENT: normal bowel sounds, soft. ABSENT: distended, guarding, mass, organolmegaly, rebound, tenderness Rectal exam: PRESENT: deferred Extremities exam: PRESENT: full ROM. ABSENT: calf tenderness, clubbing, pedal edema Musculoskeletal exam: PRESENT: ambulatory, dislocation, full ROM Neurological exam: PRESENT: alert, awake, oriented to person, oriented to place, oriented to time, oriented to situation, CN II-XII grossly intact. ABSENT: motor sensory deficit Psychiatric exam: PRESENT: appropriate affect, normal mood. ABSENT: homicidal ideation, suicidal ideation Skin exam: PRESENT: dry, intact, warm. ABSENT: cyanosis, rash Results Laboratory Results: 10/11/18 04:38 10/11/18 04:38 10/11/18 10/11/18 04:38 04:38 WBC 12.9 H RBC 4.04 L Hgb 13.9 Hct 40.2 MCV 99 H MCH 34.3 H MCHC 34.6 RDW 13.6 Plt Count 194 Seg Neutrophils % 90.5 H Lymphocytes % 5.1 L Monocytes % 4.4 Eosinophils % 0.0 Basophils % 0.0 Absolute Neutrophils 11.7 H Absolute Lymphocytes 0.7 Absolute Monocytes 0.6 Absolute Eosinophils 0.0 Absolute Basophils 0.0 Sodium 138.9 Potassium 4.3 Chloride 107 Carbon Dioxide 20 L Anion Gap 12 BUN 25 H Creatinine 0.91 Est GFR ( Amer) > 60 Est GFR (Non-Af Amer) > 60 Glucose 190 H Calcium 9.2 Phosphorus 3.3 Magnesium 2.2 Albumin 3.4 L 10/10/18 04:00 NT-Pro-B Natriuret Pep 370 Impressions: Chest CT 10/09/18 00:00 IMPRESSION: Left lower lobe airspace disease consistent with pneumonia. Lung alarcon are otherwise clear. Chest X-Ray 10/09/18 03:29 IMPRESSION: No acute cardiopulmonary findings. Abdomen/Pelvis CT 10/09/18 04:27 IMPRESSION: 1. Moderate left lower lobar pneumonia. Recommend CR/CT surveillance including at 7-12 weeks following initiation of any clinically warranted therapy. 2. No acute abdominal pelvic findings. Qualifiers - * PATIENT BEING DISCHARGED WITH ANY OF THE FOLLOWING DIAGNOSIS: No Plan Discharge Plan: Discharge home Time Spent: Less than 30 Minutes
[2018-10-12] MEDS ORDERED: (PENDING PHARMACY ID) (Simvastatin [Zocor 80 Mg Tablet] 40 MG) PO SCH (10:00)
[2018-10-14] MEDS ORDERED: ERGOCALCIFEROL (VITAMIN D2) 50000 UNIT (1.25 MG) CAPSULE PO SCH (10:00)
== END 2018-10-11 12:46 | disposition home or self-care (01) | DRG 195 ==
LOC: ER 03:18 → EH 08:20 → INTOOBSV 08:20 → 4N 14:35 → OBSVTOIN 17:12
PROVIDERS: ADMIT Internal Medicine; ATTEND Internal Medicine
DX: J18.1 Lobar pneumonia, unspecified organism (principal); E11.9 Type 2 diabetes mellitus without complications; E78.5 Hyperlipidemia, unspecified; F32.9 Major depressive disorder, single episode, unspecified; E87.5 Hyperkalemia; E66.9 Obesity, unspecified; J45.909 Unspecified asthma, uncomplicated; R79.89 Other specified abnormal findings of blood chemistry; Z79.84 Long term (current) use of oral hypoglycemic drugs; Z98.84 Bariatric surgery status; Z98.49 Cataract extraction status, unspecified eye; Z87.891 Personal history of nicotine dependence; Z80.1 Family history of malignant neoplasm of trachea, bronchus and lung; Z80.0 Family history of malignant neoplasm of digestive organs
CPT/HCPCS: 36415; 71045; 71250; 74177; 80053; 80069; 80076; 81001; 82803; 82962; 83605; 83690; 83735; 83880; 85025; 85610; 87040; 87070; 87086; 87205; 87804; 93005; 93010; 94640; 94667; 94668; 96361; 96365; 99285; G0378; J0696; J1650; J1815; J1956; J2920; J3490; J7030; J7120; J7620